=== PATIENT | female | born 1955 | race Caucasian/White ===

== ENCOUNTER 2018-04-05 19:08 | Emergency (ER) | payer BC ==
[~2018-04-05] VITALS: Ht 162.6 cm; Wt 75.5 kg
[2018-04-05 19:31] LABS: HEMATOCRIT 38.6 % (36.0-46.0); HEMOGLOBIN 13.3 G/DL (11.9-15.5); MCH 32.8 PG (29.0-34.0); MCHC 34.5 G/DL (30.0-36.0); MCV 95.1 FL (83-99); PLATELET COUNT 364 K/uL (156-360); RBC DIS.WIDTH-CV 12.1 % (11.8-14.6); RBC DIS.WIDTH-SD 42.3 % (39-53); RED BLOOD COUNT 4.06 M/uL (3.80-5.20)
[2018-04-05 19:40] LABS: CHLORIDE 104 mEq/L (99-109); POTASSIUM 4.2 mEq/L (3.7-5.4); SODIUM 138 mEq/L (136-147)
[2018-04-05 19:42] LABS: GLUCOSE 160 mg/dL (70-99)
[2018-04-05 19:46] LABS: CREATININE 0.8 mg/dL (0.6-1.3); GFR ESTIMATE (CALCULATED) > 59 mL/min/
[2018-04-05 19:47] LABS: UREA NITROGEN (BUN) 18 mg/dL (9-23)
[2018-04-05 20:40] LABS: APPEARANCE TURBID ((CLEAR)); BILIRUBIN NEGATIVE; BLOOD NEGATIVE; COLOR YELLOW ((YELLOW)); GLUCOSE (STRIP) NEGATIVE; KETONES NEGATIVE; LEUKOCYTES LARGE; NITRITE NEGATIVE; PROTEIN (STRIP) NEGATIVE; SPECIFIC GRAVITY 1.029 (1.000-1.030); UROBILINOGEN 0.2 MG/DL (0.2-1.0)
[2018-04-05 21:06] LABS: EPITHELIAL CELLS 1+ /HPF; MUCUS RARE /LPF; RED BLOOD CELLS 0-5 /HPF (0-5)
[2018-04-05 21:07] LABS: AMORPHOUS URATES CRYSTALS 2+; BACTERIA 3+ /HPF; UCUL ADDED? YES
[2018-04-06] MEDS ORDERED: FLAGYL500 MG PO (00:02)
[2018-04-06] MEDS ORDERED: CIPRO500 MG PO (00:02)
[2018-04-06] MEDS ORDERED: NORCO 5/3251 TABLET PO (00:04)
[2018-04-06 00:20] VITALS: BP 155/104
== END 2018-04-06 00:21 | disposition home or self-care (01) ==
LOC: EME 19:08
DX: K57.32 Diverticulitis of large intestine without perforation or abscess without bleeding (principal); N39.0 Urinary tract infection, site not specified
CPT/HCPCS: 74176; 80048; 81003; 85027; 87086; 99281; 99285; J1885; J7030